=== PATIENT | female | born 1990 | race Caucasian/White ===

== ENCOUNTER 2021-09-06 07:11 | Inpatient (IN) | payer SELFPAY ==
[2021-09-06] MEDS ORDERED: Nalbuphine 10 MG/1 ML Vial IVPUSH PRN (07:20)
[2021-09-06] MEDS ORDERED: Oxytocin 10 Units/1 ML SDV ONE (07:28)
[2021-09-06] MEDS ORDERED: Oxytocin 10 Units/1 ML SDV IM ONE (07:30)
[2021-09-06] MEDS ORDERED: Lactated Ringers 1,000 ML IV SCH (07:30)
--- NOTE | 2021-09-06 08:17 | PCM.LDHP ---
L&D History of Present Illness - General Date of Service: 09/06/21 Admit Problem/Dx: Patient Status Order with Admit Dx/Problem 09/06/21 07:20 Patient Status [ADT] Routine Admission Diagnosis/Problem Admission Diagnosis/Problem Vaginal delivery Source of Information: Patient History Limitations: Reports: No Limitations - History of Present Illness Introduction:: Lj Abraham is a 30-year-old G4 now P4004 female status post precipitous vaginal delivery at 38 weeks 1 day (STACI 09/19/2021) who presented with contractions that had started at around 5 AM. They have been getting worse throughout the morning and came in for evaluation. While she was being evaluated she had spontaneous rupture membranes and quickly progressed to delivering the infant. By the time I had arrived and was delivered but the placenta was still in place. Infant had not had the umbilical cord cut by the time of my arrival. Associated Symptoms: Reports: vaginal fluid, large amount Present Illness Comments:: Lj Abraham is a 30-year-old G4 now P4004 female status post precipitous vagin al delivery at 38 weeks 1 day. She had routine care with Dr. Keane and Sailaja Multani throughout her starting at 10 weeks gestational age. Patient had that was complicated by gestational diabetes and was started on Metformin 500 mg nightly to control her blood sugars. Patient also had GBS positive status on evaluation she received flu vaccine on 06/13/2021. She received Tdap on 08/16/2021. She had a normal anatomy ultrasound. Her is complicated by: * Gestational diabetes and was controlled with Metformin 500 mg nightly * GBS positive status did not receive any antibiotics due to precipitous vaginal delivery * Mostly Cameroonian-speaking patient but is able to communicate fairly well with staff MOTHER'S HELPER history -0-0-4 G1: 11/05/2010, 39 weeks, , 8 pounds 3 ounces, male , epidural for anesthesia, no complications G2: 03/04/2013, 40 weeks, , 8 pounds 4 ounces, female infant, no complications G3: 10/14/2015, 37 weeks 2 days, , 5 pounds 7 ounces, male infant, no complications G4: 09/06/2021, 38 weeks 1 day, precipitous , 7 pounds 4 ounces, female , A2 gestational diabetes and GBS positive status labs Blood type: B+ Antibody screen: Negative First trimester hematocrit/hemoglobin: 39.1%/12.9 on 02/22/2021 Platelets: 296 on 02/22/2021 Rubella status: Immune Hepatitis B surface antigen: Negative RPR: Negative Hepatitis C: Negative HIV: Negative Gonorrhea: Negative Chlamydia: Negative Genetic testing: Normal Prequel genetic screening testing Anatomy ultrasound: Normal anatomy, no abnormalities, no placenta previa, anterior placenta, 51st percentile on 08/29/2021 One hour glucose tolerance test: 156 Second trimester hematocrit/hemoglobin: 34.4%/11.2 on 06/13/2021 Platelets: 278 on 06/13/2021 3-hour glucose tolerance test: Fasting 99, 1 hour 189, 2-hour 153, 3-hour 131 GBS status: Positive - Related Data Allergies/Adverse Reactions: Allergies Allergy/AdvReac Type Severity Reaction Status Date / Time No Known Allergies Allergy Verified 10/14/15 09:32 Home Medications: Home Meds Docusate Sodium [Colace] 100 mg PO BID PRN #30 cap 10/16/15 [Rx] Ibuprofen [Motrin] 600 mg PO Q4H PRN #30 tablet 10/16/15 [Rx] Past Medical History - Past Health History Medical/Surgical History: Denies Medical/Surgical History MOTHER'S HELPER History: Reports: : 4 Para: 4 Endocrine/Metabolic History: Reports: Diabetes, Gestational (metformin controlled) - Past Surgical History GI Surgical History: Reports: Cholecystectomy Social & Family History - Tobacco Use Tobacco Use Status *Q: Never Tobacco User Tobacco Use Within Last Twelve Months: No - Tobacco Core Measures Tobacco Use/Smoking Within Last 30 Days: No Smokeless Tobacco Use in Last 30 Days: No - Alcohol Use Alcohol Use History: No - Recreational Drug Use Recreational Drug Use: No Drug Use in Last 12 Months: No - Living Situation & Occupation Living situation: Reports: , with Spouse, with Family H&P Review of Systems - Review of Systems: Review Of Systems: See Below General: Denies: Fever, Chills, Weakness, Fatigue HEENT: Denies: Headaches, Rhinitis, Post Nasal Drip, Sinus Congestion, Sore Throat, Visual Changes Pulmonary: Denies: Shortness of Breath, Wheezing, Pleuritic Chest Pain, Cough Cardiovascular: Denies: Chest Pain, Palpitations, Dyspnea on Exertion, Orthopnea Gastrointestinal: Denies: Abdominal Pain, Constipation, Diarrhea, Nausea, Vomiting Genitourinary: Denies: Dysuria, Frequency, Burning, Pain, Urgency Musculoskeletal: Reports: Back Pain (and hip pain) Skin: Denies: Rash, Lesions Psychiatric: Denies: Depression, Anxiety L&D Exam - Exam Exam: See Below - Exam General: Alert, Oriented HEENT: Conjunctiva Clear, EOMI Neck: Supple, Trachea Midline Lungs: Normal Respiratory Effort Cardiovascular: Regular Rate GI/Abdominal Exam: Soft, Non-Tender, No Distention, Other (uterine fundus at umbilicus). No: Guarding, Rigid, Rebound, Tender Genitourinary: Normal external exam, Vaginal tears (near superior urethra that was not repaired) Skin: Warm, Dry, Intact Psychiatric: Alert, Normal Affect, Normal Mood - Problem List (1) 38 weeks gestation of SNOMED Code(s): 47540613 ICD Code: Z3A.38 - 38 WEEKS GESTATION OF Status: Acute Current Visit: Yes (2) Oral hypoglycemic controlled White classification A2 gestational diabetes mellitus (GDM) SNOMED Code(s): 06265153 ICD Code: O24.415 - GESTATNL DIABETES IN PREG, CTRL BY ORAL HYPOGLYCEMIC DRUGS Status: Acute Current Visit: Yes (3) GBS (group B Streptococcus carrier), +RV culture, currently SNOMED Code(s): 0764285258337, 599079346, 1187300594955 ICD Code: O99.820 - STREPTOCOCCUS B CARRIER STATE COMPLICATING Status: Acute Current Visit: Yes (4) Vaginal delivery SNOMED Code(s): 807850957 ICD Code: O80 - ENCOUNTER FOR FULL-TERM UNCOMPLICATED DELIVERY Status: Acute Current Visit: Yes Problem List Initiated/Reviewed/Updated: Yes Orders Last 24hrs: Active Orders 24 hr Category Date Time Status Patient Status Manage Transfer [TRANSFER] Routine ADT 09/06/21 07:58 Ordered Patient Status [ADT] Routine ADT 09/06/21 07:20 Active Activity as Tolerated [RC] PFP Care 09/06/21 07:20 Active Communication Order [RC] ASDIRECTED Care 09/06/21 07:20 Active Heart Tones [RC] ASDIRECTED Care 09/06/21 07:21 Active Non Stress Test [RC] PER UNIT ROUTINE Care 09/06/21 07:20 Active Notify Provider [RC] PFP Care 09/06/21 07:20 Active Notify Provider [RC] PRN Care 09/06/21 07:20 Active Peripheral IV Care [RC] . DIRECTED Care 09/06/21 07:21 Active Vital Signs [RC] PER UNIT ROUTINE Care 09/06/21 07:20 Active CBC WITH AUTO DIFF [HEME] Stat Lab 09/06/21 07:20 Ordered CORONAVIRUS COVID-19 DHARMESH [MOLEC] Stat Lab 09/06/21 07:21 Ordered RAPID PLASMA REAGIN,RPR [CHEM] Routine Lab 09/06/21 07:20 Ordered Lactated Ringers [Ringers, Lactated] 1,000 ml Med 09/06/21 07:30 Active IV ASDIRECTED Nalbuphine [Nubain] Med 09/06/21 07:20 Active 10 mg IVPUSH Q2H PRN Sodium Chloride 0.9% [Saline Flush] Med 09/06/21 09:00 Active 10 ml FLUSH 0900,2100 Electronic Heart Tones Ext w TOCO [WOMSER] Oth 09/06/21 07:20 Ordered Routine Electronic Heart Tones Internal [WOMSER] Per Unit Oth 09/06/21 07:20 Ordered Routine Peripheral IV Insertion Adult [OM.PC] Routine Oth 09/06/21 07:20 Ordered Resuscitation Status Routine Resus Stat 09/06/21 07:20 Ordered Medication Orders Lactated Ringer's (Ringers, Lactated) 1,000 mls @ 100 mls/hr IV ASDIRECTED JEREMIAS Nalbuphine HCl (Nalbuphine 10 Mg/1 Ml Vial) 10 mg IVPUSH Q2H PRN PRN Reason: Pain Sodium Chloride (Sodium Chloride 0.9% 10 Ml Syringe) 10 ml FLUSH 0900,2100 [facility] Assessment/Plan Comment:: Lj Abraham is a 30-year-old G4 now P4 004 female status post precipitous vaginal delivery at 38 weeks 1 day with complicated by A2 gestational diabetes on Metformin and GBS positive status Admit to inpatient following precipitous spontaneous vaginal delivery Patient given Pitocin 10 units IM due to not having IV access with precipitous vaginal delivery Regular diet Vitals per unit routine Ibuprofen and Tylenol for pain control Assist with breast-feeding as needed Continue to monitor lochia Anticipate discharge home on day #2 due to untreated GBS status of the mother Brandon Bustos MD 8:21 AM 09/06/2021
[2021-09-06] MEDS ORDERED: Hydrocortisone Acetate 25 MG Supp RECTAL PRN (08:25)
[2021-09-06] MEDS ORDERED: Witch Hazel Medicated Pads 40/Jar TOP PRN (08:25)
[2021-09-06] MEDS ORDERED: Benzocaine/Menthol 20%-0.5% Spray 78 GM Cannister TOP PRN (08:25)
[2021-09-06] MEDS ORDERED: Acetaminophen 325 MG Tab PO PRN (08:25)
--- NOTE | 2021-09-06 08:31 | PCM.DEL ---
L & D Note - General Info Date of Service: 09/06/21 Mother's Due Date: 09/19/21 - Delivery Note Labor: Spontaneous Delivery Method: Spontaneous Vaginal Delivery-Single Presentation: Vertex Anesthesia Type: None Amniotic Fluid Description: Clear Episiotomy Type: None Laceration: Periurethral (first degree, hemostatic and not repaired) Placenta: Intact, Spontaneous Cord: 3 Vessels Estimated Blood Loss: 200 Resuscitation Needed: No [place]: Bulb Syringe, Stimulated, Warmed, [place] Used Provider: Arnaldo Keane Score 1 min: 9 Score 5 min: 9 Second Stage Interventions: Reports: Pushing Involuntarily Delivery Comments (Free Text/Narrative):: Stage I: Lj Abraham was admitted for advanced labor. On admission she had spontaneous rupture of membranes with clear fluid and her cervix was dilated to 10 cm. She was GBS positive but did not receive any antibiotics due to precipitous vaginal delivery. Patient began pushing involuntarily after spontaneous rupture membranes. Stage II: On 09/06/2021 she had a precipitous normal vaginal delivery of a live male infant at 07:22 with filbert grower. Apgars of 9 & 9. Weight of 3300 g (7 lbs for oz). Length of 20.5 inches. When I arrived the infant had not had umbilical cord cut. The cord was doubly clamped and cut by father the infant. was placed on mother's abdomen. Stage III: She had a spontaneous delivery of an intact placenta in [place] presentation. Three vessel cord. She was given pitocin 10 units IM due to lack of IV access with precipitous vaginal delivery and fundal massage. She had a small periurethral laceration that was hemostatic not repaired. Mom and baby were stable to recovery. EBL of 200 mL. Brandon Bustos MD 8:32 AM 09/06/2021 - General Info Date of Service: 09/06/21 - Patient Data Lab Results Last 24 Hours: Laboratory Results - last 24 hr 09/06/21 Range/Units 08:02 WBC 9.42 (3.98-10.04) K/mm3 RBC 4.39 (3.98-5.22) M/mm3 Hgb 12.3 (11.2-15.7) gm/dl Hct 37.7 (34.1-44.9) % MCV 85.9 (79.4-94.8) fl MCH 28.0 (25.6-32.2) pg MCHC 32.6 (32.2-35.5) g/dl RDW Std Deviation 45.8 (36.4-46.3) fL Plt Count 266 (182-369) K/mm3 MPV 10.9 (9.4-12.3) fl Neut % (Auto) 78.8 H (34.0-71.1) % Lymph % (Auto) 15.3 L (19.3-51.7) % [place] % (Auto) 5.1 (4.7-12.5) % Eos % (Auto) 0.5 L (0.7-5.8) Baso % (Auto) 0.1 (0.1-1.2) % Neut # (Auto) 7.42 H (1.56-6.13) K/mm3 Lymph # (Auto) 1.44 (1.18-3.74) K/mm3 [place] # (Auto) 0.48 H (0.24-0.36) K/mm3 Eos # (Auto) 0.05 (0.04-0.36) K/mm3 Baso # (Auto) 0.01 (0.01-0.08) K/mm3 Med Orders - Current: Current Medications Acetaminophen (Acetaminophen 325 Mg Tab) 650 mg PO Q6H PRN PRN Reason: mild pain or fever Benzocaine/Menthol (Benzocaine/Menthol 20%-0.5% [place] 78 Gm Cannister) 0 gm TOP ASDIRECTED PRN PRN Reason: Perineal Comfort Measure Hydrocortisone Acetate (Hydrocortisone Acetate 25 Mg Supp) 25 mg RECTAL BID PRN PRN Reason: Hemorrhoid pain Ibuprofen (Ibuprofen 600 Mg Tab) 600 mg PO Q6H PRN PRN Reason: Mild pain or fever Prenat Multivit/Elementary Education Teacher/Iron/Folic Ac ( Multivitamin With Calcium/Folic Acid/Iron Tab) 1 each PO DAILY JEREMIAS Witch Tiffany (Witch Tiffany Medicated Pads 40/Jar) 1 pad TOP ASDIRECTED PRN PRN Reason: Perineal Comfort Measure Discontinued Medications Lactated Ringer's (Ringers, Lactated) 1,000 mls @ 100 mls/hr IV ASDIRECTED JEREMIAS Nalbuphine HCl (Nalbuphine 10 Mg/1 Ml Vial) 10 mg IVPUSH Q2H PRN PRN Reason: Pain Oxytocin (Oxytocin 10 Units/1 Ml Sdv) Confirm Administered Dose 10 unit .ROUTE .STK-MED ONE Stop: 09/06/21 07:29 Sodium Chloride (Sodium Chloride 0.9% 10 Ml Syringe) 10 ml FLUSH 0900,2100 JEREMIAS - Problem List & Annotations (1) 38 weeks gestation of SNOMED Code(s): 43270204 Code(s): Z3A.38 - 38 WEEKS GESTATION OF Status: Acute Current Visit: Yes (2) Oral hypoglycemic controlled White classification A2 gestational diabetes mellitus (GDM) SNOMED Code(s): 56688194 Code(s): O24.415 - GESTATNL DIABETES IN PREG, CTRL BY ORAL HYPOGLYCEMIC DRUGS Status: Acute Current Visit: Yes (3) GBS (group B Streptococcus carrier), +RV culture, currently SNOMED Code(s): 8589199663175, 245268428, 1885310649698 Code(s): O99.820 - STREPTOCOCCUS B CARRIER STATE COMPLICATING Status: Acute Current Visit: Yes (4) Vaginal delivery SNOMED Code(s): 503572359 Code(s): O80 - ENCOUNTER FOR FULL-TERM UNCOMPLICATED DELIVERY Status: Acute Current Visit: Yes - Problem List Review Problem List Initiated/Reviewed/Updated: No - My Orders Last 24 Hours: My Active Orders 09/06/21 Breakfast Regular Diet [DIET] 09/06/21 07:20 Resuscitation Status Routine 09/06/21 07:21 CORONAVIRUS COVID-19 DHARMESH [MOLEC] Stat 09/06/21 08:02 RAPID PLASMA REAGIN,RPR [CHEM] Routine 09/06/21 08:25 Acetaminophen [TylenoL] 650 mg PO Q6H PRN Benzocaine/Menthol [Dermoplast Pain Relief 20%-0.5% [place]] See Dose Instructions TOP ASDIRECTED PRN Hydrocortisone Acetate [Anucort-HC] 25 mg RECTAL BID PRN Ibuprofen [Motrin] 600 mg PO Q6H PRN witch Tiffany [Tucks] 1 pad TOP ASDIRECTED PRN Heat Therapy [OM.PC] PRN 09/06/21 08:25 Patient Status [ADT] Routine Activity as Tolerated [RC] PER UNIT ROUTINE May Shower [RC] ASDIRECTED Vital Signs [RC] ASDIRECTED Assess Lochia [WOMSER] Per Unit Routine Assess Uterine Involution [WOMSER] Per Unit Routine Breast Pump [WOMSER] Per Unit Routine Ice Therapy [OM.PC] Per Unit Routine Medication Administration Instruction [OM.PC] Routine Perineal Care [OM.PC] Per Unit Routine Sitz Bath [OM.PC] Per Unit Routine 09/06/21 09:00 Vit with Ca/FA/Iron [ Plus Iron] 1 each PO DAILY 09/07/21 08:25 Heat Therapy [OM.PC] PRN - Plan Plan:: Lj Abraham is a 30-year-old -0-0-4 female status post precipitous vaginal delivery at 38 weeks 1 day with complicated by A2 gestational diabetes on Metformin and GBS positive status Admit to inpatient following precipitous spontaneous vaginal delivery Patient given Pitocin 10 units IM due to not having IV access with precipitous vaginal delivery Regular diet Vitals per unit routine Ibuprofen and Tylenol for pain control Assist with breast-feeding as needed Continue to monitor lochia Anticipate discharge home on day #2 due to untreated GBS status of the mother Brandon Bustos MD 8:32 AM 09/06/2021
[2021-09-06] MEDS ORDERED: Sodium Chloride 0.9% 10 ML Syringe FLUSH SCH (09:00)
[2021-09-06] MEDS: Ibuprofen 600 MG Tab PO PRN ×2 (09:32→18:10)
[2021-09-06] MEDS: Prenatal Multivitamin with Calcium/Folic Acid/Iron Tab PO SCH (13:52)
[2021-09-07] MEDS: Ibuprofen 600 MG Tab PO PRN ×2 (00:02→17:09)
--- NOTE | 2021-09-07 08:17 | PCM.PNPP ---
- General Info Date of Service: 09/07/21 Functional Status: Reports: Pain Controlled - Review of Systems General: Reports: No Symptoms HEENT: Reports: No Symptoms Pulmonary: Reports: No Symptoms Cardiovascular: Reports: No Symptoms Gastrointestinal: Reports: No Symptoms Genitourinary: Reports: No Symptoms Musculoskeletal: Reports: No Symptoms Skin: Reports: No Symptoms Neurological: Reports: No Symptoms Psychiatric: Reports: No Symptoms - General Info Date of Service: 09/07/21 - Patient Data Vital Signs - Most Recent: Last Vital Signs Temp 37.1 C 09/07/21 04:16 Pulse 62 09/07/21 04:16 Resp 12 09/07/21 04:16 BP 127/77 09/07/21 04:16 Pulse Ox 97 09/07/21 04:16 Weight - Most Recent: 96.661 kg I&O - Last 24 Hours: Intake & Output 09/06/21 09/07/21 09/07/21 22:59 06:59 14:59 Intake Total 415 Balance 415 Lab Results - Last 24 Hours: Laboratory Results - last 24 hr 09/06/21 09/06/21 09/06/21 Range/Units 08:02 08:02 08:20 WBC 9.42 (3.98-10.04) K/mm3 RBC 4.39 (3.98-5.22) M/mm3 Hgb 12.3 (11.2-15.7) gm/dl Hct 37.7 (34.1-44.9) % MCV 85.9 (79.4-94.8) fl MCH 28.0 (25.6-32.2) pg MCHC 32.6 (32.2-35.5) g/dl RDW Std Deviation 45.8 (36.4-46.3) fL Plt Count 266 (182-369) K/mm3 MPV 10.9 (9.4-12.3) fl Neut % (Auto) 78.8 H (34.0-71.1) % Lymph % (Auto) 15.3 L (19.3-51.7) % [place] % (Auto) 5.1 (4.7-12.5) % Eos % (Auto) 0.5 L (0.7-5.8) Baso % (Auto) 0.1 (0.1-1.2) % Neut # (Auto) 7.42 H (1.56-6.13) K/mm3 Lymph # (Auto) 1.44 (1.18-3.74) K/mm3 Richardson # (Auto) 0.48 H (0.24-0.36) K/mm3 Eos # (Auto) 0.05 (0.04-0.36) K/mm3 Baso # (Auto) 0.01 (0.01-0.08) K/mm3 RPR Non-reactive (NONREACTIVE) SARS-CoV-2 RNA (DHARMESH) Negative (NEGATIVE) Med Orders - Current: Current Medications Acetaminophen (Acetaminophen 325 Mg Tab) 650 mg PO Q6H PRN PRN Reason: mild pain or fever Benzocaine/Menthol (Benzocaine/Menthol 20%-0.5% [place] 78 Gm Cannister) 0 gm TOP ASDIRECTED PRN PRN Reason: Perineal Comfort Measure Hydrocortisone Acetate (Hydrocortisone Acetate 25 Mg Supp) 25 mg RECTAL BID PRN PRN Reason: Hemorrhoid pain Ibuprofen (Ibuprofen 600 Mg Tab) 600 mg PO Q6H PRN PRN Reason: Mild pain or fever Last Admin: 09/07/21 00:02 Dose: 600 mg Documented by: Prenat Multivit/[place]/Iron/Folic Ac ( Multivitamin With Calcium/Folic Acid/Iron Tab) 1 each PO DAILY [facility] Last Admin: 09/06/21 13:52 Dose: Not Given Documented by: King [place] ([place] Medicated Pads 40/Jar) 1 pad TOP ASDIRECTED PRN PRN Reason: Perineal Comfort Measure Discontinued Medications Lactated Ringer's (Ringers, Lactated) 1,000 mls @ 100 mls/hr IV ASDIRECTED [facility] Nalbuphine HCl (Nalbuphine 10 Mg/1 Ml Vial) 10 mg IVPUSH Q2H PRN PRN Reason: Pain Oxytocin (Oxytocin 10 Units/1 Ml Sdv) Confirm Administered Dose 10 unit .ROUTE .STK-MED ONE Stop: 09/06/21 07:29 Last Admin: 09/06/21 07:30 Dose: 10 unit Documented by: Oxytocin (Oxytocin 10 Units/1 Ml Sdv) 10 unit IM ONETIME ONE Stop: 09/06/21 07:31 Last Admin: 09/06/21 09:38 Dose: Not Given Documented by: Sodium Chloride (Sodium Chloride 0.9% 10 Ml Syringe) 10 ml FLUSH 0900,2100 JEREMIAS - Interaction Support Person: - Recovery Exam Fundal Tone: Firm Fundal Level: 1 Fingerbreadths Below Umbilicus Fundal Placement: Midline Lochia Amount: Small Lochia Color: Rubra/Red Perineum Description: Other (see below) Other Perinuem Description: skid Episiotomy/Laceration: None Bladder Status: Voiding Urinary Elimination: Voided - Exam General: Alert, Oriented HEENT: Pupils Equal Neck: Supple Lungs: Clear to Auscultation, Normal Respiratory Effort Cardiovascular: Regular Rate, Regular Rhythm GI/Abdominal Exam: Normal Bowel Sounds, Soft, Non-Tender, No Organomegaly, No Distention, No Abnormal Bruit, No Mass, Pelvis Stable Extremities: Normal Inspection, Normal Range of Motion, Non-Tender, No Pedal Edema Skin: Warm Neurological: No New Focal Deficit Psy/Mental Status: Alert, Normal Affect, Normal Mood - Problem List Review Problem List Initiated/Reviewed/Updated: Yes - Assessment Assessment:: PPD1 Doing well. No complaints. Probable discharge tomorrow. - Plan Plan:: Lj Abraham is a 30-year-old -0-0-4 female status post precipitous vaginal delivery at 38 weeks 1 day with complicated by A2 gestational diabetes on Metformin and GBS positive status Admitted to inpatient following precipitous spontaneous vaginal delivery Patient given Pitocin 10 units IM due to not having IV access with precipitous vaginal delivery Regular diet Vitals per unit routine Ibuprofen and Tylenol for pain control Assist with breast-feeding as needed Continue to monitor lochia Anticipate discharge home on day #2 due to untreated GBS status of the mother Brandon Bustos MD 8:32 AM 09/06/2021
[2021-09-07] MEDS: Prenatal Multivitamin with Calcium/Folic Acid/Iron Tab PO SCH (17:43)
--- NOTE | 2021-09-08 06:13 | PCM.DCSUM1 ---
Discharge Summary - Hospital Course Brief History: Admitted in active labor. Precipitous . Uncomplicated course. Diagnosis: Stroke: No - Discharge Data Discharge Date: 09/08/21 Discharge Disposition: Home, Self-Care 01 Condition: Good - Referral to Home Health Primary Care Physician: Brandon Bustos MD - Patient Instructions Diet: Usual Diet as Tolerated Activity: No Strenuous Activities Driving: May Drive Today Showering/Bathing: May Shower Notify Provider of: Fever, Increased Pain, Swelling and Redness, Drainage, Nausea and/or Vomiting - Discharge Plan *PRESCRIPTION DRUG MONITORING PROGRAM REVIEWED*: No *COPY OF PRESCRIPTION DRUG MONITORING REPORT IN PATIENT NELSON: No Home Medications: Home Meds Pnv No.95/Ferrous Fum/Folic AC [ Multivitamin Tablet] 1 tab PO DAILY 09/06/21 [History] metFORMIN HCl [Metformin HCl] 500 mg PO BEDTIME 09/06/21 [History] Referrals: Arnaldo Keane MD [Physician] - (2 weeks) - Discharge Summary/Plan Comment DC Time >30 min.: No Total # of Minutes for Discharge Time: 15 - General Info Date of Service: 09/08/21 Functional Status: Reports: Pain Controlled - Review of Systems General: Reports: No Symptoms HEENT: Reports: No Symptoms Pulmonary: Reports: No Symptoms Cardiovascular: Reports: No Symptoms Gastrointestinal: Reports: No Symptoms Genitourinary: Reports: No Symptoms Musculoskeletal: Reports: No Symptoms Skin: Reports: No Symptoms Neurological: Reports: No Symptoms Psychiatric: Reports: No Symptoms - Patient Data Vitals - Most Recent: Last Vital Signs Temp 36.2 C 09/08/21 03:32 Pulse 72 09/08/21 03:32 Resp 14 09/08/21 03:32 BP 125/77 09/08/21 03:32 Pulse Ox 95 09/08/21 03:32 Weight - Most Recent: 96.661 kg I&O - Last 24 hours: Intake & Output 09/07/21 09/07/21 09/08/21 14:59 22:59 06:59 Intake Total 235 Balance 235 Med Orders - Current: Current Medications Acetaminophen (Acetaminophen 325 Mg Tab) 650 mg PO Q6H PRN PRN Reason: mild pain or fever Last Admin: 09/08/21 03:40 Dose: 650 mg Documented by: Benzocaine/Menthol (Benzocaine/Menthol 20%-0.5% [place] 78 Gm Cannister) 0 gm TOP ASDIRECTED PRN PRN Reason: Perineal Comfort Measure Hydrocortisone Acetate (Hydrocortisone Acetate 25 Mg Supp) 25 mg RECTAL BID PRN PRN Reason: Hemorrhoid pain Ibuprofen (Ibuprofen 600 Mg Tab) 600 mg PO Q6H PRN PRN Reason: Mild pain or fever Last Admin: 09/07/21 17:09 Dose: 600 mg Documented by: Prenat Multivit/[place]/Iron/Folic Ac ( Multivitamin With Calcium/Folic Acid/Iron Tab) 1 each PO DAILY [facility] Last Admin: 09/07/21 17:43 Dose: Not Given Documented by: King Allen (King Allen Medicated Pads 40/Jar) 1 pad TOP ASDIRECTED PRN PRN Reason: Perineal Comfort Measure Discontinued Medications Lactated Ringer's (Ringers, Lactated) 1,000 mls @ 100 mls/hr IV ASDIRECTED [facility] Nalbuphine HCl (Nalbuphine 10 Mg/1 Ml Vial) 10 mg IVPUSH Q2H PRN PRN Reason: Pain Oxytocin (Oxytocin 10 Units/1 Ml Sdv) Confirm Administered Dose 10 unit .ROUTE .STK-MED ONE Stop: 09/06/21 07:29 Last Admin: 09/06/21 07:30 Dose: 10 unit Documented by: Oxytocin (Oxytocin 10 Units/1 Ml Sdv) 10 unit IM ONETIME ONE Stop: 09/06/21 07:31 Last Admin: 09/06/21 09:38 Dose: Not Given Documented by: Sodium Chloride (Sodium Chloride 0.9% 10 Ml Syringe) 10 ml FLUSH 0900,2100 [facility] - Exam General: Reports: Alert, Oriented HEENT: Reports: Pupils Equal, Pupils Reactive, EOMI, Mucous Membr. Moist/[place] Neck: Reports: Supple Lungs: Reports: Clear to Auscultation, Normal Respiratory Effort Cardiovascular: Reports: Regular Rate, Regular Rhythm GI/Abdominal Exam: Normal Bowel Sounds, Soft, Non-Tender, No Organomegaly, No Distention, No Abnormal Bruit, No Mass, Pelvis Stable Rectal (Female) Exam: Normal Exam, Normal Rectal Tone Back Exam: Reports: Normal Inspection, Full Range of Motion Extremities: Normal Inspection, Normal Range of Motion, Non-Tender, No Pedal Edema, Normal Capillary Refill Skin: Reports: Warm, Dry, Intact Wound/Incisions: Reports: Healing Well Neurological: Reports: No New Focal Deficit Psy/Mental Status: Reports: Alert, Normal Affect, Normal Mood
[2021-09-08] MEDS: Prenatal Multivitamin with Calcium/Folic Acid/Iron Tab PO SCH (10:34)
[2021-09-08 10:40] VITALS: BP 131/82; PULSE 81
== END 2021-09-08 09:35 | disposition home or self-care (01) | DRG 807 ==
LOC: JD.OBCHECK 07:11 → JD.OB 07:20 → OBSVTOIN 07:56 → JD.OB 08:22
PROVIDERS: ADMIT Obstetrics & Gynecology; ATTEND Obstetrics & Gynecology
PROC: 10E0XZZ Delivery of Products of Conception, External Approach (ICD-10-PCS; principal; 2021-09-06)
PROC: 0HQ9XZZ Repair Perineum Skin, External Approach (ICD-10-PCS; 2021-09-06)
DX: O99.824 Streptococcus B carrier state complicating childbirth (principal); Z37.0 Single live birth; Z3A.38 38 weeks gestation of pregnancy; O24.425 Gestational diabetes mellitus in childbirth, controlled by oral hypoglycemic drugs; O62.3 Precipitate labor; O70.0 First degree perineal laceration during delivery; Z20.822 Contact with and (suspected) exposure to COVID-19
CPT/HCPCS: 36415; 59409; 85025; 86592; A9270-GY; J2590; U0002